=== PATIENT | female | born 1935 | race African-American/Black ===

== ENCOUNTER → 2016-11-21 | Outpatient (CLI) | payer OTHER ==
--- NOTE | ~2016-11-21 | BD1 ---
[facility] A Service of [facility] RADIOLOGY TEXT RESULTS PATIENT: ALONDRA PAYNE LOCATION: [facility] : 33 UNIT #: [id number] AGE: [address]: PAYTON SHEEHAN SEX: F ORDER DR: [id number] [facility] [address] [place], [place] [address] [id number] O MR#: [id number] #: [id number] NAME: ALONDRA PAYNE : 1935 SEX: F STUDY DATE/TIME: 11/21/2016 10:57 UNIT: [facility] ROOM: STUDY DESCRIPTION: BD Dexa Bone Dens 1+ Site Attending Physician: Payton Sheehan M.D. Referring Physician: Payton Sheehan M.D. Primary Care Physician: Payton Sheehan M.D. MEDICAL IMAGING REPORT This report is preliminary unless electronic signature is present EXAM DXA scan 11/21/2016. HISTORY Status post menopause with no hormone replacement therapy. Osteopenia. Hysterectomy with removal of both ovaries. Family history of breast carcinoma. Diabetes. Hypertension with blood pressure medication. Smoking history for 30 years. FINDINGS Bone mineral density in the lumbar spine from L1-L4 is 0.813 g/cm2, which is 2.1 standard deviations below the mean when compared to the young adult reference population, which is characteristic of osteopenia. This is at the mean when compared to the age-matched population. Bone mineral density in the left femoral neck was 0.583 g/cm2, which is 2.4 standard deviations below the mean when compared to the young adult reference population, which is characteristic of osteopenia. This is 0.7 standard deviations below the mean when compared to the age-matched population. IMPRESSION Bone mineral density in the lumbar spine and the left hip characteristic of osteopenia. Dictated by... Dash Landa M.D. THIS IS AN ELECTRONICALLY VERIFIED REPORT Dash Landa M.D. at 11/22/2016 8:12 AM [place] A Service of [facility] RADIOLOGY TEXT RESULTS PATIENT: ALONDRA PAYNE LOCATION: [facility] #: [id number] : 33 UNIT #: [id number] AGE: [address]: PAYTON SHEEHAN SEX: F ORDER DR: TD: 11/21/2016 14:16 JOB #: [id number] MEDICAL IMAGING REPORT Page 1 of 1 COPY
== END | disposition home or self-care (01) ==
LOC: CWCC 10:35
DX: Z13.820 Encounter for screening for osteoporosis (principal); N95.9 Unspecified menopausal and perimenopausal disorder; M85.89 Other specified disorders of bone density and structure, multiple sites; Z88.8 Allergy status to other drugs, medicaments and biological substances
CPT/HCPCS: 77080